=== PATIENT | male | born 1995 | race American Indian/Alaskan Native ===

== ENCOUNTER 2018-12-04 18:42 | Emergency (ER) | payer SELFPAY ==
--- NOTE | 2018-12-04 18:52 | Event Note ---
ED Screening Note ED Screening Note: was playing bball and got elbowed to right temp area. pos contusion pos loc per pt intact on exam This initial assessment/diagnostic orders/clinical plan/treatment(s) is/are subject to change based on patients health status, clinical progression and re- assessment by fellow clinical providers in the ED. Further treatment and workup at subsequent clinical providers discretion. Patient/guardian urged not to elope from the ED as their condition may be serious if not clinically assessed and managed. Initial orders include: ct ro tbi
[2018-12-04 19:00] VITALS: BP 133/99
[2018-12-04] MEDS ORDERED: NORCO 5/325 PO ONE (19:24)
--- NOTE | 2018-12-04 20:01 | Emergency Department Report ---
ED Head Trauma HPI - General Chief complaint: Head Injury Stated complaint: POSS CONCUSSION Time Seen by Provider: 12/04/18 18:50 Source: patient Mode of arrival: Ambulatory Limitations: No Limitations - History of Present Illness Initial comments: Pt is a 23 y/o aam who was playing bball and got elbowed to right temp area. states pos contusion was transported by friend pt is a/o x 3 ambulatory no n/v states intermittent dizziness and headache 4/10 aching sharp right temp MD Complaint: head injury Onset/Timin -: hour(s) Mechanism of Injury: sports related injury Location: temporal Loss of Consciousness: unsure Previous Trauma to this Area: No Place: outdoors Radiation: none Severity: moderate Severity scale (0 -10): 5 Quality: sharp Consistency: constant Provoking factors: other (movement ) Other Injuries: none Associated Symptoms: neck pain - Related Data Previous Rx's Medication Instructions Recorded Last Taken Type Acetaminophen/Codeine [Tylenol 1 tab PO Q6H PRN #12 tab 12/04/18 Unknown Rx /Codeine # 3 tab] Metoclopramide [Reglan] 10 mg PO Q6H #30 tablet 12/04/18 Unknown Rx diphenhydrAMINE [Benadryl CAP] 25 mg PO Q6HR PRN #30 capsule 12/04/18 Unknown Rx Allergies/Adverse reactions: Allergies Allergy/AdvReac Type Severity Reaction Status Date / Time No Known Allergies Allergy Unverified 12/04/18 18:51 ED Review of Systems ROS: Stated complaint: POSS CONCUSSION Other details as noted in HPI Constitutional: denies: chills, fever Eyes: denies: eye pain, eye discharge, vision change ENT: denies: ear pain, throat pain Respiratory: denies: cough, shortness of breath, wheezing Cardiovascular: denies: chest pain, palpitations Endocrine: no symptoms reported Gastrointestinal: denies: abdominal pain, nausea, vomiting, diarrhea Genitourinary: denies: urgency, dysuria Musculoskeletal: other (contusion right temp region ). denies: back pain, joint swelling, arthralgia Skin: denies: rash, lesions Neurological: headache. denies: weakness, numbness, paresthesias, confusion, abnormal gait, vertigo Psychiatric: denies: anxiety, depression Hematological/Lymphatic: denies: easy bleeding, easy bruising ED Past Medical Hx - Past Medical History Previous Medical History?: No - Surgical History Past Surgical History?: No - Social History Smoking Status: Never Smoker Substance Use Type: None - Medications Home Medications: Home Medications Medication Instructions Recorded Confirmed Last Taken Type Acetaminophen/Codeine [Tylenol 1 tab PO Q6H PRN #12 tab 12/04/18 Unknown Rx /Codeine # 3 tab] Metoclopramide [Reglan] 10 mg PO Q6H #30 tablet 12/04/18 Unknown Rx diphenhydrAMINE [Benadryl CAP] 25 mg PO Q6HR PRN #30 capsule 12/04/18 Unknown Rx ED Physical Exam - General Limitations: No Limitations General appearance: alert, in no apparent distress - Head Head exam: Present: normocephalic - Expanded Head Exam Expanded Head exam: Present: contusion (right temp no stepoff no crepitus ). Absent: laceration, abrasion, hematoma, racoon eyes, malcolm's sign, general tenderness, tenderness of temporal artery, CSF rhinorrhea, CSF otorrhea - Eye Eye exam: Present: normal appearance, PERRL, EOMI. Absent: conjunctival injection, nystagmus Pupils: Present: normal accommodation - ENT ENT exam: Present: normal orophraynx, mucous membranes moist, TM's normal bilaterally, normal external ear exam - Neck Neck exam: Present: normal inspection, tenderness (right posterior lateral neck muscle pain rom intact unrestricted to all huizar, no swelling no deformity ), full ROM. Absent: meningismus, lymphadenopathy, thyromegaly - Expanded Neck Exam Expanded Neck exam: Absent: tenderness, midline deformity, anterior neck swelling, thyroid mass, carotid bruit, tracheal deviation - Respiratory Respiratory exam: Present: normal lung sounds bilaterally. Absent: respiratory distress, wheezes, rales, rhonchi, stridor, chest wall tenderness - Cardiovascular Cardiovascular Exam: Present: regular rate, normal rhythm, normal heart sounds. Absent: systolic murmur, diastolic murmur, rubs, gallop - GI/Abdominal GI/Abdominal exam: Present: soft, normal bowel sounds. Absent: distended, tenderness, bruit, hernia - Rectal Rectal exam: Present: deferred - Extremities Exam Extremities exam: Present: normal inspection, full ROM, normal capillary refill. Absent: tenderness, pedal edema, joint swelling, calf tenderness - Back Exam Back exam: Present: normal inspection, full ROM. Absent: tenderness, CVA tenderness (R), CVA tenderness (L), muscle spasm, paraspinal tenderness, vertebral tenderness, rash noted - Neurological Exam Neurological exam: Present: alert, oriented X3, CN II-XII intact, normal gait, reflexes normal. Absent: motor sensory deficit - Expanded Neurological Exam Expanded Neurological exam: Absent: ataxia Patient oriented to: Present: person, place, time Speech: Present: fluid speech Cranial nerves: EOM's Intact: Normal, Gag Reflex: Normal, Tongue Deviation: Normal, Nystagmus: Normal, Facial Sensation: Normal Cerebellar function: Finger to Nose: Normal, Heel to Delgado: Normal, Romberg: Normal Upper motor neuron: Lew Neglect: Normal, Pronator Drift: Normal, Babinski Sign: Normal, Sensory Extinction: Normal Sensory exam: Upper Extremity Light Touch: Normal, Upper Extremity Pin Prick: Normal, Upper Extremity Temperature: Normal, UE 2 Point Discrimination: Normal, Lower Extremity Light Touch: Normal, Lower Extremity Pin Prick: Normal, Lower Ex tremity Temperature: Normal, LE 2 Point Discrimination: Normal Motor strength exam: RUE: 5, LUE: 5, RLE: 5, LLE: 5 DTR: bicep (R): 2+, bicep (L): 2+, ankle (R): 2+, ankle (L): 2+ Best Eye Response ([place]): (4) open spontaneously Best Motor Response ([place]): (6) obeys commands Best Verbal Response ([place]): (5) oriented [place] Total: 15 - Psychiatric Psychiatric exam: Present: normal affect, normal mood - Skin Skin exam: Present: warm, dry, intact, normal color. Absent: rash ED Course Vital Signs 12/04/18 18:59 Temperature 97.9 F Pulse Rate 83 Respiratory 16 Rate Blood Pressure 133/99 O2 Sat by Pulse 99 Oximetry - Radiology Data Radiology results: report reviewed, image reviewed Ordering Physician: SHELBI VELAZCO Date of Service: 12/04/18 Procedure(s): CT cervical spine wo con Accession Number(s): [id number] cc: SHELBI VELAZCO CT CERVICAL SPINE WITHOUT CONTRAST INDICATION: Neck pain after fall. COMPARISON: None available. TECHNIQUE: Axial, coronal and sagittal CT imaging of the cervical spine without contrast was performed. All CT scans at this location are performed using CT dose reduction for ALARA by means of automated exposure control. FINDINGS: VERTEBRAE:No acute fracture. Normal alignment. DISC SPACES: No significant abnormality. FACET JOINTS:No significant abnormality. CENTRAL CANAL: No central canal stenosis or neural foraminal narrowing. SOFT TISSUES:No significant abnormality. LUNG APICES: No significant abnormality. ADDITIONAL FINDINGS: None IMPRESSION: No acute abnormality of the cervical spine. Signer Name: Ricki Shoemaker MD Signed: 12/04/2018 8:48 PM Workstation Name: [id number] Transcribed By: MOISE Dictated By: Ricki Shoemaker MD Electronically Authenticated By: Ricki Shoemaker MD Signed Date/Time: 12/04/182047 DD/ 45 TD/TT: Ordering Physician: SHELBI VELAZCO Date of Service: 12/04/18 Procedure(s): CT head/brain wo con Accession Number(s): [id number] cc: SHELBI VELAZCO CT HEAD WITHOUT CONTRAST INDICATION : Headache after being elbowed while playing basketball. TECHNIQUE: Axial, coronal and sagittal CT imaging was performed from the skull apex through the skull base without contrast. All CT scans at this location are performed using CT dose reduction for ALARA by means of automated exposure control. COMPARISON: None available. FINDINGS: PARENCHYMA: No mass, midline shift, hemorrhage, extraaxial collection or acute territorial infarction. VENTRICLES: Symmetric and normal in size. SOFT TISSUES: Soft tissues including the orbits appear normal. BONES: No acute osseous abnormality. SINUSES: No significant abnormality. ADDITIONAL FINDINGS: None. IMPRESSION: No acute intracranial abnormality. Signer Name: Ricki Shoemaker MD Signed: 12/04/2018 8:46 PM Workstation Name: [id number] Transcribed By: MOISE Dictated By: Ricki Shoemaker MD Electronically Authenticated By: Ricki Shoemaker MD Signed Date/Time: 12/04/182045 DD/ 44 TD/TT: - Medical Decision Making CT scan normal lobe bleed no mass no abnormality neuro exam is unremarkable patient is alert oriented 3 hammertoe steady gait no headache no dizziness no nausea vomiting patient and family members given closed head injury precautions patient and family members verbalized agreement and understanding of discharge plan patient is stable condition at this time - NEXUS Criteria Focal neurological deficit present: No Midline spinal tenderness present: No Altered level of consciousness: No Intoxication present: No Distracting injury present: No NEXUS results: C-Spine can be cleared clinically by these results. Imaging is not required. Critical care attestation.: If time is entered above; I have spent that time in minutes in the direct care of this critically ill patient, excluding procedure time. ED Disposition Clinical Impression: Minor head injury with loss of consciousness Qualifiers: Encounter type: initial encounter Qualified Code(s): S06.9X9A - Unspecified intracranial injury with loss of consciousness of unspecified duration, initial encounter Disposition: TO HOME OR SELFCARE Is pt being admited?: No Does the pt Need Aspirin: No Condition: Stable Instructions: Concussion (ED), Minor Head Injury (ED) Prescriptions: diphenhydrAMINE [Benadryl CAP] 25 mg PO Q6HR PRN #30 capsule PRN Reason: Headache Metoclopramide [Reglan] 10 mg PO Q6H #30 tablet Acetaminophen/Codeine [Tylenol /Codeine # 3 tab] 1 tab PO Q6H PRN #12 tab PRN Reason: pain Referrals: [facility] [Outside] - 3-5 Days Forms: Work/School Release Form(ED) Time of Disposition: 21:13
--- NOTE | 2018-12-04 20:51 | Cat Scan Report ---
CT HEAD WITHOUT CONTRAST INDICATION : Headache after being elbowed while playing basketball. TECHNIQUE: Axial, coronal and sagittal CT imaging was performed from the skull apex through the skul l base without contrast. All CT scans at this location are performed using CT dose reduction for ALA RA by means of automated exposure control. COMPARISON: None available. FINDINGS: PARENCHYMA: No mass, midline shift, hemorrhage, extraaxial collection or acute territorial infarctio n. VENTRICLES: Symmetric and normal in size. SOFT TISSUES: Soft tissues including the orbits appear normal. BONES: No acute osseous abnormality. SINUSES: No significant abnormality. ADDITIONAL FINDINGS: None. IMPRESSION: No acute intracranial abnormality. Signer Name: Ricki Shoemaker MD Signed: 12/04/2018 8:46 PM Workstation Name: [id number]
--- NOTE | 2018-12-04 20:52 | Cat Scan Report ---
CT CERVICAL SPINE WITHOUT CONTRAST INDICATION: Neck pain after fall. COMPARISON: None available. TECHNIQUE: Axial, coronal and sagittal CT imaging of the cervical spine without contrast was performe d. All CT scans at this location are performed using CT dose reduction for ALARA by means of automat ed exposure control. FINDINGS: VERTEBRAE:No acute fracture. Normal alignment. DISC SPACES: No significant abnormality. FACET JOINTS:No significant abnormality. CENTRAL CANAL: No central canal stenosis or neural foraminal narrowing. SOFT TISSUES:No significant abnormality. LUNG APICES: No significant abnormality. ADDITIONAL FINDINGS: None IMPRESSION: No acute abnormality of the cervical spine. Signer Name: Ricki Shoemaker MD Signed: 12/04/2018 8:48 PM Workstation Name: [id number]
== END 2018-12-04 21:20 | disposition home or self-care (01) ==
LOC: ED 18:42
DX: S00.03XA Contusion of scalp, initial encounter (principal); X58.XXXA Exposure to other specified factors, initial encounter; Y93.9 Activity, unspecified; Y92.89 Other specified places as the place of occurrence of the external cause; Y99.8 Other external cause status
CPT/HCPCS: 70450; 72125